=== PATIENT | female | born 1990 | race Caucasian/White ===

== ENCOUNTER 2019-01-27 12:27 | Emergency (ER) | payer SELFPAY ==
--- NOTE | 2019-01-27 14:36 | ERD ---
ER Documentation Chief Complaint Chief Complaint Vaginal bleeding HPI 28-year-old female, presents the emergency department, complaining of pelvic pain and vaginal spotting for 2 days. The patient is a G3, P1 at approximately 6 weeks by LMP 11/21/2018. The patient has not established care. She denies fever, no chills, no rashes, no urinary symptoms, no vaginal discharge ROS All systems reviewed and are negative except as per history of present illness. Medications Home Meds Active Scripts Acetaminophen* (Tylenol*) 325 Mg Tablet, 2 TAB PO Q6 PRN for PAIN AND OR E LEVATED TEMP, #20 TAB Prov:KONSTANTIN ALLISON MD 01/27/19 Allergies Allergies: Coded Allergies: No Known Allergy (Unverified , 01/27/19) PMhx/Soc Medical and Surgical Hx: pt denies Medical Hx History of Surgery: Yes (C/S) Anesthesia Reaction: No Hx Alcohol Use: No Hx Substance Use: No Hx Tobacco Use: No Smoking Status: Never smoker FmHx Family History: No diabetes, No coronary disease Physical Exam Physical Exam Const: No acute distress Head: Atraumatic Eyes: Normal Conjunctiva ENT: Normal External Ears, Nose and Mouth. Neck: Full range of motion. No meningismus. Resp: Clear to auscultation bilaterally Cardio: Regular rate and rhythm, no murmurs Abd: Soft, non tender, non distended. Normal bowel sounds Skin: No petechiae or rashes Back: No midline or flank tenderness Ext: No cyanosis, or edema Neur: Awake and alert Psych: Normal Mood and Affect Result Diagram: 01/27/19 1508 Results 24 hrs Laboratory Tests Test 01/27/19 15:08 White Blood Count 6.6 10^3/ul Red Blood Count 4.45 10^6/ul Hemoglobin 14.1 g/dl Hematocrit 43.1 % Mean Corpuscular Volume 96.9 fl Mean Corpuscular Hemoglobin 31.7 pg Mean Corpuscular Hemoglobin Concent 32.7 g/dl Red Cell Distribution Width 12.0 % Platelet Count 138 10^3/UL Mean Platelet Volume 13.3 fl Immature Granulocytes % 0.500 % Neutrophils % 44.4 % Lymphocytes % 40.6 % Monocytes % 9.9 % Eosinophils % 3.8 % Basophils % 0.8 % Nucleated Red Blood Cells % 0.0 /100WBC Immature Granulocytes # 0.030 10^3/ul Neutrophils # 2.9 10^3/ul Lymphocytes # 2.7 10^3/ul Monocytes # 0.7 10^3/ul Eosinophils # 0.3 10^3/ul Basophils # 0.1 10^3/ul Nucleated Red Blood Cells # 0.0 10^3/ul Urine Color STRAW Urine Clarity SLIGHTLY CLOUDY Urine pH 6.0 Urine Specific [place] 1.009 Urine Ketones NEGATIVE mg/dL Urine Nitrite NEGATIVE mg/dL Urine Bilirubin NEGATIVE mg/dL Urine Urobilinogen NEGATIVE mg/dL Urine Leukocyte Esterase NEGATIVE Lev/ul Urine Microscopic RBC 1 /HPF Urine Microscopic WBC 0 /HPF Urine Squamous Epithelial Cells FEW /HPF Urine Bacteria FEW /HPF Urine Hemoglobin 3+ mg/dL Urine Glucose NEGATIVE mg/dL Urine Total Protein NEGATIVE mg/dl Beta HCG, Quantitative 4596.0 mIU/ml Procedures/MDM Vital signs stable, Physical exam unremarkable. Differential diagnosis include but not limited to: UTI, threatening , incomplete versus complete , ectopic , physiologic implantation bleeding, molar . Physical examination and clinical presentation most likely consistent with missed versus threatening . During the ED course the patient remained hemodynamically stable and asymptomatic. Results and clinical impression discussed with patient who agrees with management. The patient is stable to be treated outpatient and will be discharged home with close monitoring and follow-up in 2 days with her primary physician. Bed rest and pelvic rest recommended until further medical evaluation. The patient was instructed regarding the outcomes and the potential complications like severe bleeding and . If the patient presents severe bleeding or pain, she was instructed to return to the hospital immediately. Disclaimer: Inadvertent spelling and grammatical errors are likely due to EHR/d ictation software use and do not reflect on the overall quality of patient care. Also, please note that the electronic time recorded on this note does not necessarily reflect the actual time of the patient encounter. Departure Diagnosis: Primary Impression: Vaginal bleeding affecting early Additional Impression: heart tones not heard Condition: Stable Additional Instructions: Muchas gage por [facility] para gardner servicio. Esperamos que en gardner visita a la amanuel de emergencia gardner problema medico haya sido solucionado y que se sienta mucho mejor. Para estar seguros que gardner mejoria sigue en proceso, le pedimos el favor de hacer jaquelin neda de seguimiento medico con gardner doctor primario en los proximos 2-4 chong. Lleve con usted estos documentos y las medicinas recetadas. Si vivienne sintomas empeoran, NO SE ESPERE, por favor regrese a amanuel de emergencia INMEDIATAMENTE. En colton que usted no tenga un mdico de atencin primaria: Llame al mdico o clnica comunitaria de referencia que aparece abajo beatriz las horas de consultorio para hacer jaquelin neda para que le vean. CLINICAS: [place] [id number] [phone] [facility] [phone] [facility] [phone] [place] [phone] [place] [phone] [facility]. [phone] KONSTANTIN ROBIN MD January 27, 2019 14:36
[2019-01-27] MEDS ORDERED: ACET325T33 PO (16:07)
== END 2019-01-27 16:14 | disposition home or self-care (01) ==
LOC: FTE 12:27
DX: O20.9 Hemorrhage in early pregnancy, unspecified (principal); R10.2 Pelvic and perineal pain; Z3A.01 Less than 8 weeks gestation of pregnancy
CPT/HCPCS: 76801; 76817; 81001; 84702; 85025